=== PATIENT | female | born 1995 | race African-American/Black ===

== ENCOUNTER 2021-06-22 22:19 | Emergency (ER) | payer OTHER ==
[~2021-06-22] VITALS: Ht 172.7 cm; Wt 68.0 kg
--- NOTE | ~2021-06-22 | EMS ---
[place] [address] EMS Patient Care Report Name: GABRIEL VALDES Room #: REG [facility].Kelly#: [id number] Admission: 06/22/21 Attend Phys: Discharge: Date of : [birth year] Report #: [id number] THIS REPORT FOR: //name// Report Transmitted: 06/22/2021 22:32 EMS Care Summary [place], [place]/[facility] Incident [id number] @ 06/22/2021 21:57 Incident Location [address] [place] [address] Patient GABRIEL VALDES Female, 25 Years 1995 Patient Address [address] [place] [address] Patient History Dermatitus (Eczema), Patient Allergies No known allergies, Patient Medications None Reported, Chief Complaint altered mental status/intoxication Disposition Transported No Lights/[place] Reason Unknown Problem/Person Down Transported To [facility] Narrative pt [place], called in by passer by. PD on scene w/ pt who is alert but appears to be under the influence. pt is ambulatory but unsteady on feet. she has no complaint. she is able to give name and BD but no other info. she has no complaint but does not answer orientation questions. pt to be eval at closest ER. pt to cot, VS, transport w/o change. [facility] [address] [place] [address] EMS Patient Care Report Name: GABRIEL VALDES Room #: REG [facility].#: [id number] Admission: 06/22/21 Attend Phys: Discharge: Date of : [birth year] Report #: [id number] Initial Vitals @22:10P: 60,R: 18,BP: 113/67,GCS: 14,Glucose: 99,SpO2: 98,Revised Trauma: 12, Assessments @22:05MENTAL:Confused,Person Oriented,SKIN:No Abnormalities,HEENT:Head/Face: Other,LUNG SOUNDS:ABDOMEN:PELVIS//GI:EXTREMITIES:PULSE:Radial: 2+ Normal,NEURO:Abnormal Gait, Impression Alcohol use Procedures @22:05ALS AssessmentResponse: Unchanged@22:08StretcherResponse: Unchanged Timeline 21:55,Call Received 21:55,Dispatch Notified 21:57,Dispatched 21:58,En Route 22:03,On Scene 22:05,At Patient 22:05,ALS Assessment,Response: Unchanged 22:08,Stretcher,Response: Unchanged 22:10,BP: 113/67 M,PULSE: 60,RR: 18 R,SPO2: 98 Ox,ETCO2: ,B,PAIN: ,GCS: 14, 22:11,Depart Scene 22:15,At Destination 22:29,Call Closed Disclaimer [email or web address] Copyright 2020 [employer] This EMS Care Summary contains data elements from the applicable legal record (which may be displayed differently). It is designed to provide pertinent information for the following purposes: continuity of care, clinical quality, and state data reporting. The complete legal record is available to ED staff and administrators of the receiving hospital in [facility]'s Patient Tracker. All data is provided "as is."
[2021-06-23 05:43] VITALS: BP 104/66
== END 2021-06-23 05:44 | disposition home or self-care (01) ==
LOC: ER 22:19
DX: F10.129 Alcohol abuse with intoxication, unspecified (principal)